=== PATIENT | male | born 1980 | race Caucasian/White ===

== ENCOUNTER 2016-06-26 23:12 | Emergency (ER) | payer OTHER ==
[2016-06-26 23:23] VITALS: BP 130/83; PULSE 81; RESP 20; TEMP 97.8
[2016-06-26] MEDS ORDERED: TOBRAMYCIN 0.3% OPHTH DROPS 5 ML BTL BOTH EYES STA (23:47)
[2016-06-26] MEDS ORDERED: KETOTIFEN 0.025% OPHTH DROPS 5 ML BTL BOTH EYES STA (23:48)
--- NOTE | 2016-06-26 23:52 | ED ---
Eye Problem HPI - General Chief complaint: Eye Problems Stated complaint: eye problems Time Seen by Provider: 06/26/16 23:28 Source: patient Mode of arrival: ambulatory Limitations: no limitations - History of Present Illness Initial comments: 35-year-old male patient presents emergency department today for complaints of bilateral eye swelling. Patient states he was in [place] 3 days ago and was self treating for a stye in the left lower lid. Patient states that he opened his eyes and a dirty wall on and has been having some burning in his eyes since. He has also had some swelling to the right upper and lower eyelid with this. He denies any overt drainage but states that he does wake up with some crusting on the right side. He denies any fever, chills, blurred, or double vision. Denies any history of similar symptoms. - Related Data Home Medications Medication Instructions Recorded Confirmed No Known Home Medications [No 06/26/16 06/26/16 Known Home Medications] Allergies Allergy/AdvReac Type Severity Reaction Status Date / Time No Known Allergies Allergy Verified 06/26/16 23:29 Review of Systems ROS Statement: Those systems with pertinent positive or pertinent negative responses have been documented in the HPI. ROS Other: All systems not noted in ROS Statement are negative. Past Medical History Past Medical History: No Reported History History of Any Multi-Drug Resistant Organisms: None Reported Past Surgical History: No Surgical Hx Reported Past Psychological History: No Psychological Hx Reported Smoking Status: Never smoker Past Alcohol Use History: None Reported Past Drug Use History: None Reported General Exam Limitations: no limitations General appearance: alert, in no apparent distress Eye exam: Present: normal appearance, PERRL, EOMI, periorbital swelling (Right upper and lower lid swelling, erythema. Left lower lid swelling, erythema, and internal hordeolum noted.). Absent: scleral icterus, conjunctival injection ENT exam: Present: normal exam, normal oropharynx, mucous membranes moist Respiratory exam: Present: normal lung sounds bilaterally. Absent: respiratory distress, wheezes, rales, rhonchi, stridor Cardiovascular Exam: Present: regular rate, normal rhythm, normal heart sounds. Absent: systolic murmur, diastolic murmur, rubs, gallop, clicks GI/Abdominal exam: Present: soft, normal bowel sounds. Absent: distended, tenderness, guarding, rebound, rigid Neurological exam: Present: alert, oriented X3, CN II-XII intact Skin exam: Present: warm, dry, intact, normal color. Absent: rash Course Vital Signs 06/26/16 23:19 Temperature 97.8 F Pulse Rate 81 Respiratory 20 Rate Blood Pressure 130/83 O2 Sat by Pulse 95 Oximetry Medical Decision Making - Medical Decision Making 35-year-old male patient presented for complaints of bilateral eye swelling. Symptoms are consistent with blepharitis on the right. Left lower lid internal hordeolum noted. Patient will be discharged home with ALLERGY drops as well as tobramycin drops to treat her hordeolum. Patient instructed to follow up with lockstitch back maker if symptoms don't start to improve in the next 1-2 days. Patient instructed to follow up with primary care physician for recheck. Patient instructed to return for any new, worsening, or concerning symptoms. Patient verbalizes understanding and agrees with this plan. Disposition Clinical Impression: Blepharitis, right eye, Hordeolum internum left lower eyelid Disposition: HOME SELF-CARE Condition: Stable Instructions: Stye (ED), Blepharitis (ED) Additional Instructions: Use Zaditor ALLERGY drops 1 drop in each eye twice daily. Instill 2 drops antibiotic solution into both eyes 4 times a day. Follow-up with lockstitch back maker if symptoms don't start to improve over the next 1-2 days. Return for any new, worsening, or concerning symptoms. Referrals: Porter Metzger DO [Primary Care Provider] - 1-2 days Kari Prakash MD [STAFF PHYSICIAN] - 1-2 days Time of Disposition: 23:51
== END 2016-06-27 00:27 | disposition home or self-care (01) ==
LOC: EC 23:12
DX: H01.002 Unspecified blepharitis right lower eyelid (principal); H00.015 Hordeolum externum left lower eyelid
CPT/HCPCS: 99283